=== PATIENT | female | born 1980 ===

== ENCOUNTER 2016-08-02 12:58 | Emergency (ER) | payer MEDICAID ==
[2016-08-02 13:02] VITALS: BP 135/74; PULSE 84; RESP 15; TEMP 98.4; O2SAT 98
== END 2016-08-02 14:20 | disposition left against medical advice (07) ==
LOC: NETRI 12:58
DX: Z53.21 Procedure and treatment not carried out due to patient leaving prior to being seen by health care provider (principal)
CPT/HCPCS: 99281